=== PATIENT | male | born 1985 | race Caucasian/White ===

== ENCOUNTER 2017-03-03 02:49 | Emergency (ER) | payer MEDICAID ==
--- NOTE | 2017-03-03 02:54 | EDPHY ---
H & P HPI/ROS: HPI CHIEF COMPLAINT: Cough, shortness of breath, wheezing HISTORY OF PRESENT ILLNESS: This patient very pleasant 31-year-old male, history of polysubstance abuse including heroin and speed, additionally he is homeless, presents emergency room with shortness of breath, cough with yellow sputum and wheezing. Patient states that he has been sick for past 3 days. No fever. He denies any chest pain or vomiting. He states that his wheezing up and tonight he could catch his breath so decided come the emergency room. He arrived by walking in. Upon arrival he is noted to be in no acute distress. Vital signs are stable. Room air saturation is 97%. Has faint wheezing bilaterally with deep inspiration. Past Medical History: Denies significant medical history Past Surgical History: Denies any recent surgery Social History: Polysubstance abuse, homeless, last shot heroin earlier tonight. Family History: Noncontributory ROS REVIEW OF SYSTEMS: A comprehensive 10 point review of systems is otherwise negative aside from elements mentioned in the history of present illness. Exam Constitutional appears well nontoxic, triage nursing summary reviewed, vital signs reviewed, awake/alert. Eyes normal conjunctivae and sclera, EOMI, PERRLA. HENT normal inspection, atraumatic, moist mucus membranes, no epistaxis, neck supple/ no meningismus, no raccoon eyes. Respiratory good air movement bilaterally but there is faint wheezing with deep inspiration clear to auscultation bilaterally, normal breath sounds, no respiratory distress Cardiovascular rate normal, regular rhythm, no murmur, no edema, distal pulses normal. Gastrointestinal soft, non-tender, no rebound, no guarding, normal bowel sounds, no distension, no pulsatile mass. Genitourinary no CVA tenderness. Musculoskeletal no midline vertebral tenderness, full range of motion, no calf swelling, no tenderness of extremities, no meningismus, good pulses, neurovascularly intact. Skin pink, warm, & dry, no rash, skin atraumatic. Neurologic awake, alert and oriented x 3, AAOx3, moves all 4 extremities equally, motor intact, sensory intact, CN II-XII intact, normal cerebellar, normal vision, normal speech. Psychiatric normal mood/affect. Heme/Lymph/Immune no lymphadenopathy. Differential Diagnosis: Includes but is not limited to in a particular order, upper respiratory tract infection, bronchitis, viral syndrome, pneumothorax, pneumonia Medical Decision Making: Plan for this patient chest x-ray two view to rule out pneumonia, DuoNeb breathing treatment and 60 mg prednisone and re-evaluate. Re-evaluation: ED x-ray chest two view; negative for acute cardiopulmonary disease. Specifically I do not appreciate pneumonia. No pneumothorax. [id number]: I did re-evaluate this patient this time he feels better after DuoNeb breathing treatment. Vital signs are stable. No hypoxia. Wheezing has improved. Will prescribe prednisone 60 mg and albuterol inhaler. Additionally patient understands return emergency room if he has worsening shortness of breath questions or concerns. Chest x-ray reviewed shows no pneumonia. Return precautions discussed with the patient understands. Source: Patient Constitutional: Initial Vital Signs Temperature (C) 36.5 C 03/03/17 03:04 Heart Rate 91 03/03/17 03:04 Respiratory Rate 18 03/03/17 03:04 Blood Pressure 176/105 H 03/03/17 03:04 O2 Sat (%) 98 03/03/17 03:04 O2 Delivery Mode Room Air Allergies/Adverse Reactions: haloperidol [From Haldol] Allergy (Verified 03/03/17 03:08) Home Medications: Medication Instructions Recorded Albuterol [Proventil Inhaler HFA 1 - 2 puffs IH Q4H #1 mdi 03/03/17 (*)] predniSONE 60 mg PO DAILY #15 tab 03/03/17 Medical Decision Making - Data Points Medications Given: Discontinued Medications Albuterol/Ipratropium (Duoneb) 3 ml IH EDNOW ONE Stop: 03/03/17 03:12 Last Admin: 03/03/17 03:13 Dose: 3 ml Prednisone (Prednisone) 60 mg PO EDNOW ONE Stop: 03/03/17 03:12 Last Admin: 03/03/17 03:15 Dose: 60 mg Departure - Departure Disposition: Home, Routine, Self-Care Clinical Impression: Acute bronchitis Qualifiers: Bronchitis organism: unspecified organism Qualified Code(s): J20.9 - Acute bronchitis, unspecified Condition: Good Instructions: Acute Bronchitis (ED), Wheezing (ED) Additional Instructions: 1. Drink lots of fluids stay well-hydrated. 2. Return emergency room if you have worsening symptoms questions or concerns. 3. Prednisone and albuterol as prescribed Referrals: [facility] [Other] - As per Instructions Prescriptions: Albuterol [Proventil Inhaler HFA (*)] 1 - 2 puffs IH Q4H #1 mdi predniSONE 60 mg PO DAILY #15 tab
[2017-03-03] MEDS ORDERED: IPRATROPIUM/ALBUTEROL 3 ML DEYVIAL IH ONE (03:11)
[2017-03-03] MEDS ORDERED: predniSONE 20 MG TAB PO ONE (03:11)
[2017-03-03] MEDS ORDERED: IPRATROPIUM/ALBUTEROL 3 ML DEYVIAL ONE (03:11)
[2017-03-03 03:57] VITALS: BP 150/109; PULSE 83; RESP 16; TEMP 97.9; O2SAT 94
== END 2017-03-03 04:13 | disposition home or self-care (01) ==
DX: J20.9 Acute bronchitis, unspecified (principal)
CPT/HCPCS: J7512